=== PATIENT | female | born 1995 | race Caucasian/White ===

== ENCOUNTER 2017-12-03 09:20 | Emergency (ER) | payer OTHER | END 2017-12-03 09:50 | disposition home or self-care (01) | LOC: MADERS 09:20 | DX: T81.4XXA Infection following a procedure, initial encounter (principal); L03.311 Cellulitis of abdominal wall; L30.4 Erythema intertrigo; J45.909 Unspecified asthma, uncomplicated | CPT/HCPCS: 99282 ==

== ENCOUNTER 2017-12-04 09:56 | Emergency (ER) | payer OTHER | END 2017-12-04 10:30 | disposition home or self-care (01) | LOC: MADERS 09:56 | DX: L03.319 Cellulitis of trunk, unspecified (principal); J45.909 Unspecified asthma, uncomplicated; Z79.899 Other long term (current) drug therapy | CPT/HCPCS: 99282 ==

== ENCOUNTER 2018-02-28 17:14 | Emergency (ER) | payer OTHER | END 2018-02-28 18:15 | disposition home or self-care (01) | LOC: MADERS 17:14 | DX: J06.9 Acute upper respiratory infection, unspecified (principal); J45.909 Unspecified asthma, uncomplicated; E03.9 Hypothyroidism, unspecified; Z79.899 Other long term (current) drug therapy | CPT/HCPCS: 99281 ==

== ENCOUNTER 2018-11-29 18:06 | Emergency (ER) | payer OTHER ==
[2018-11-29] MEDS ORDERED: predniSONE 20 MG TAB ONE (19:20)
[2018-11-29] MEDS ORDERED: predniSONE 10 MG TAB ONE (19:20)
== END 2018-11-29 19:24 | disposition home or self-care (01) ==
LOC: MADERS 18:06
DX: J02.9 Acute pharyngitis, unspecified (principal); J45.909 Unspecified asthma, uncomplicated; E03.9 Hypothyroidism, unspecified; Z79.899 Other long term (current) drug therapy
CPT/HCPCS: 87081; 87430; 99283; J7512

== ENCOUNTER 2019-12-02 18:39 | Emergency (ER) | payer OTHER ==
[2019-12-02] MEDS ORDERED: Ibuprofen 200 MG TAB ONE (19:08)
[2019-12-02] MEDS ORDERED: Lidocaine 1% 20 ML MDV ONE (19:08)
== END 2019-12-02 19:47 | disposition home or self-care (01) ==
LOC: MADERS 18:39
DX: S91.112A Laceration without foreign body of left great toe without damage to nail, initial encounter (principal); E03.9 Hypothyroidism, unspecified; J45.909 Unspecified asthma, uncomplicated; W26.8XXA Contact with other sharp object(s), not elsewhere classified, initial encounter
CPT/HCPCS: 12002; J2001

== ENCOUNTER 2022-08-04 09:33 | Outpatient (CLI) | payer OTHER | END 2022-08-04 09:34 | disposition home or self-care (01) | LOC: MADRAD 09:33 | PROVIDERS: ATTEND Nurse Practitioner Family | DX: U07.1 COVID-19 (principal); J45.901 Unspecified asthma with (acute) exacerbation; E07.9 Disorder of thyroid, unspecified; R09.89 Other specified symptoms and signs involving the circulatory and respiratory systems | CPT/HCPCS: 71046 ==

== ENCOUNTER 2022-11-08 08:52 | Emergency (ER) | payer OTHER ==
[2022-11-08 09:26] LABS: Pregnancy Test - Urine (BHCG) Negative (Negative); Pregu Control Background? CLEAR/WHITE (CLR/WHITE); Pregu Control Bar Appear? YES (CONTROL BAR); Specific Gravity 1.022 (1.002-1.036)
[2022-11-08 09:27] LABS: Bilirubin Negative (Negative); Blood, Urine Small (Negative); Clarity Clear (Clear); Glucose, Urine (Dipstick) Negative (Negative); Ketone, Urine Negative (Negative); Leukocyte Negative (Negative); Nitrite Negative (Negative); Protein, Urine (Dipstick) Negative (Neg-Trace); RBC/HPF 0-3 HPF (0-3); Specific Gravity, Urine 1.022 (1.002-1.036); Urobilinogen 0.2 mg/dL (Less than 2)
[2022-11-08 09:28] LABS: Bacteria/HPF 1+ HPF (None Seen); CAUTI Indications for Culture Pelvic or flank pain; WBC/HPF 0-3 HPF (0-3)
[2022-11-08 09:30] LABS: Urine Culture Reflex No No
[2022-11-08 10:27] LABS: #Eosinphils 0.1 thou/uL (0.0-0.7); #Lymphocytes 2.3 thou/uL (1.20-3.40); #Monocytes 0.4 thou/uL (0.11-0.59); #Neutrophils 4.4 thou/uL (1.40-6.50); %Basophils 0.7 % (0.0-1.0); %Eosinophils 1.3 % (0.0-10.0); %Monocytes 5.3 % (0.0-10.0); %Neutrophils 60.7 % (42.0-75.0); Hemoglobin 13.7 g/dL (12.0-16.0); Mean Corpuscular HGB CONC 34.2 g/dL (32.0-36.0); Mean Corpuscular Hemoglobin 29.8 pg (27.0-31.0); Mean Corpuscular Volume 87.2 fl (78.0-98.0); Mean Platelet Volume 9.2 fL (7.4-10.4); Platelet Count 249 10x3/uL (130-400); RBC Distribution Width 11.1 % (11.5-14.5); Red Blood Cell (RBC) Count 4.61 mill/uL (4.20-5.40); White Blood Cell (WBC) Count 7.2 10x3/uL (4.8-10.8)
[2022-11-08 10:43] LABS: ALT (SGPT) 18 U/L (8-55); AST (SGOT) 15 U/L (5-34); Albumin 4.2 g/dL (3.5-5.0); Alkaline Phosphatase 40 U/L (40-110); Anion Gap 13 mmol/L (10-20); BUN (Urea Nitrogen) 11 mg/dL (7.0-18.7); Bilirubin, Total 0.4 mg/dL (0.2-1.2); Calc. Creatinine Clearance 0 mL/min (70-130); Calcium 9.2 mg/dL (7.8-10.44); Carbon Dioxide 21 mmol/L (22-29); Chloride 108 mmol/L (98-107); Estimated GFR 100; Glucose 97 mg/dL (70-105); Potassium 4.1 mmol/L (3.5-5.1); Protein, Total 7.2 g/dL (6.0-8.3); Sodium 138 mmol/L (136-145)
[2022-11-08 11:18] LABS: Bilirubin Negative (Negative); Blood, Urine Small (Negative); Clarity Clear (Clear); Glucose, Urine (Dipstick) Negative (Negative); Ketone, Urine Negative (Negative); Leukocyte Negative (Negative); Nitrite Negative (Negative); Protein, Urine (Dipstick) Negative (Neg-Trace); Urobilinogen 0.2 mg/dL (Less than 2); pH, Urine 5.5 (5.0-9.0)
[2022-11-08 11:19] LABS: CAUTI Indications for Culture Dysuria,urgency,freq
[2022-11-08 11:36] LABS: RBC/HPF 0-3 HPF (0-3); WBC/HPF None Seen HPF (0-3)
[2022-11-08 11:37] LABS: Bacteria/HPF Rare-Few HPF (None Seen)
[2022-11-08 11:38] LABS: Urine Culture Reflex No No
== END 2022-11-08 12:57 | disposition home or self-care (01) ==
LOC: MADERS 08:52
DX: N30.90 Cystitis, unspecified without hematuria (principal); E66.9 Obesity, unspecified
CPT/HCPCS: 36415; 71046; 80053; 81001; 81025; 84443; 85025

== ENCOUNTER 2023-02-04 15:49 | Emergency (ER) | payer OTHER ==
[2023-02-04] MEDS ORDERED: diphenhydrAMINE 25 MG CAP ONE (16:41)
== END 2023-02-04 16:46 | disposition home or self-care (01) ==
LOC: MADERS 15:49
DX: L25.3 Unspecified contact dermatitis due to other chemical products (principal); I10 Essential (primary) hypertension; E03.9 Hypothyroidism, unspecified; Z79.899 Other long term (current) drug therapy
CPT/HCPCS: 96372; 99282; J1040

== ENCOUNTER 2023-02-07 10:16 | Emergency (ER) | payer OTHER ==
[2023-02-07 11:15] LABS: #Basophils 0.1 thou/uL (0.0-0.2); #Eosinphils 0.1 thou/uL (0.0-0.7); #Lymphocytes 2.3 thou/uL (1.20-3.40); #Monocytes 0.6 thou/uL (0.11-0.59); #Neutrophils 8.9 thou/uL (1.40-6.50); %Basophils 0.5 % (0.0-1.0); %Eosinophils 0.7 % (0.0-10.0); %Lymphocytes 19.2 % (21.0-51.0); %Monocytes 5.2 % (0.0-10.0); %Neutrophils 74.4 % (42.0-75.0); Hematocrit 42.4 % (36.0-47.0); Hemoglobin 13.8 g/dL (12.0-16.0); Mean Corpuscular HGB CONC 32.6 g/dL (32.0-36.0); Mean Corpuscular Hemoglobin 29.1 pg (27.0-31.0); Mean Corpuscular Volume 89.1 fl (78.0-98.0); Mean Platelet Volume 9.6 fL (7.4-10.4); Platelet Count 277 10x3/uL (130-400); Red Blood Cell (RBC) Count 4.76 mill/uL (4.20-5.40)
[2023-02-07] MEDS ORDERED: predniSONE 20 MG TAB ONE (11:22)
[2023-02-07] MEDS ORDERED: Famotidine 20 MG TAB ONE (11:22)
[2023-02-07] MEDS ORDERED: predniSONE 10 MG TAB ONE (11:22)
== END 2023-02-07 11:32 | disposition home or self-care (01) ==
LOC: MADERS 10:16
DX: R21 Rash and other nonspecific skin eruption (principal); E03.9 Hypothyroidism, unspecified; E66.9 Obesity, unspecified
CPT/HCPCS: 36415; 85025; 99283; J7512

== ENCOUNTER 2024-04-29 20:44 | Emergency (ER) | payer OTHER, BC ==
[2024-04-29] MEDS ORDERED: Azithromycin 250 MG TAB ONE (22:03)
== END 2024-04-29 22:10 | disposition home or self-care (01) ==
LOC: MADERS 20:44
DX: J18.0 Bronchopneumonia, unspecified organism (principal); R05.9 Cough, unspecified
CPT/HCPCS: 71046; 93005

== ENCOUNTER 2024-06-11 10:58 | Outpatient (CLI) | payer OTHER, BC | END 2024-06-11 10:59 | disposition home or self-care (01) | LOC: MADLAB 10:58 | PROVIDERS: ATTEND Registered Nurse | DX: R06.02 Shortness of breath (principal); R05.9 Cough, unspecified; R09.89 Other specified symptoms and signs involving the circulatory and respiratory systems | CPT/HCPCS: 71046 ==